=== PATIENT | female | born 1970 | race Caucasian/White ===

== ENCOUNTER 2016-12-12 14:20 | Emergency (ER) | payer SELFPAY ==
[~2016-12-12] VITALS: Ht 160 cm; Wt 74.0 kg
[~2016-12-12 14:20] MED LIST: BENZ100 PO; Z.0.NO CURRENT MEDS; ZITH250T PO
[2016-12-12 14:28] VITALS: BP 122/71; PULSE 96; RESP 17; TEMP 98.2; O2SAT 98
--- NOTE | 2016-12-12 14:47 | PD ---
HPI Chief Complaint: GI Complaint Time Seen by Provider: 14:46 Travel History International Travel<30 days: No Contact w/Intl Traveler<30days: No Traveled to known affect area: No History of Present Illness HPI 46-year-old female came to the emergency room with history of epigastric and periumbilical pain every time she eats she said. This has been going on for past 2 weeks. Currently she is in pain and this time it started since asked night. She says she has been nauseous and this morning threw up once. No history of diarrhea. No blood in the vomitus. Vital signs of been stable. She 's never had a colonoscopy or endoscopy. Currently she is not on any medications on a daily basis. Vital signs were stable. [facility] Past Medical History Narrative Medical List of her past medical, surgical, social and family history was reviewed from the nursing note. ADHD: Yes Depression: Yes Diminished Hearing: No ?: Not LMP: 1 WEEK AGO Tubal Ligation: Yes Social History Alcohol Use: Yes (MIX DRINKS OCCAS.) Tobacco Use: Yes (1 PPD) Substance Use: No Allergies-Medications (Allergen,Severity, Reaction): Coded Allergies: Codeine (Verified Allergy, Severe, HYPER, 12/12/16) Comments List of her allergies reviewed from the nursing note. Reported Meds & Prescriptions Reported Meds & Active Scripts Active Macrobid (Nitrofurantoin Monoh/Nitrofur Macro) 100 Mg Cap 100 Mg PO BID Protonix (Pantoprazole Sodium) 20 Mg Tab 20 Mg PO DAILY Narrative Medication List of her home medications reviewed from the nursing note. Review of Systems Except as stated in HPI: all other systems reviewed are Neg Physical Exam Narrative GENERAL: Awake, alert, anxious, moderate distress SKIN: Focused skin assessment warm/dry. HEAD: Atraumatic. Normocephalic. EYES: Pupils equal and round. No scleral icterus. No injection or drainage. ENT: No nasal bleeding or discharge. Mucous membranes pink and moist. NECK: Trachea midline. No JVD. CARDIOVASCULAR: Regular rate and rhythm. No murmur appreciated. RESPIRATORY: No accessory muscle use. Clear to auscultation. Breath sounds equal bilaterally. GASTROINTESTINAL: Abdomen soft, non-tender, nondistended. Hepatic and splenic margins not palpable. MUSCULOSKELETAL: No obvious deformities. No clubbing. No cyanosis. No edema. NEUROLOGICAL: Awake and alert. No obvious cranial nerve deficits. Motor grossly within normal limits. Normal speech. PSYCHIATRIC: Appropriate mood and affect; insight and judgment normal. Data Data Last Documented VS Vital Signs Date Time Temp Pulse Resp B/P Pulse Ox O2 Delivery O2 Flow Rate FiO2 12/12/16 16:46 78 16 97/68 98 Room Air 12/12/16 14:28 98.2 Orders Complete Blood Count With Diff (12/12/16 14:50) Comprehensive Metabolic Panel (12/12/16 14:50) Lipase (12/12/16 14:50) Urinalysis - C+S If Indicated (12/12/16 14:50) Ct Abd/Pel W Iv Contrast(Rout) (12/12/16 14:50) Iv Access Insert/Monitor (12/12/16 14:50) Ecg Monitoring (12/12/16 14:50) Oximetry (12/12/16 14:50) Ondansetron Inj (Zofran Inj) (12/12/16 15:00) Sodium Chloride 0.9% Flush (Ns Flush) (12/12/16 15:00) Electrocardiogram (12/12/16 14:50) Morphine Inj (Morphine Inj) (12/12/16 15:30) Ketorolac Inj (Toradol Inj) (12/12/16 15:30) Urine Culture (12/12/16 15:07) Nitrofurantoin Monohyd Macrocr (Macrobid (12/12/16 16:00) Iohexol 350 Inj (Omnipaque 350 Inj) (12/12/16 16:05) Labs Laboratory Tests Test 12/12/16 15:07 White Blood Count 9.6 TH/MM3 Red Blood Count 4.26 MIL/MM3 Hemoglobin 13.5 GM/DL Hematocrit 39.3 % Mean Corpuscular Volume 92.3 FL Mean Corpuscular Hemoglobin 31.7 PG Mean Corpuscular Hemoglobin 34.4 % Concent Red Cell Distribution Width 12.2 % Platelet Count 318 TH/MM3 Mean Platelet Volume 8.7 FL Neutrophils (%) (Auto) 48.7 % Lymphocytes (%) (Auto) 28.5 % Monocytes (%) (Auto) 5.3 % Eosinophils (%) (Auto) 16.6 % Basophils (%) (Auto) 0.9 % Neutrophils # (Auto) 4.6 TH/MM3 Lymphocytes # (Auto) 2.8 TH/MM3 Monocytes # (Auto) 0.5 TH/MM3 Eosinophils # (Auto) 1.6 TH/MM3 Basophils # (Auto) 0.1 TH/MM3 CBC Comment DIFF FINAL Differential Comment Urine Collection Type CLEAN CATCH Urine Color YELLOW Urine Turbidity CLEAR Urine pH 6.5 Urine Specific [place] 1.025 Urine Protein TRACE mg/dL Urine Glucose (UA) NEG mg/dL Urine Ketones NEG mg/dL Urine Occult Blood NEG Urine Nitrite NEG Urine Bilirubin NEG Urine Leukocyte Esterase NEG Urine RBC 0-3 /hpf Urine WBC 6-8 /hpf Urine Squamous Epithelial > 8 /hpf Cells Urine Bacteria MOD /hpf Urine Mucus FEW /lpf Microscopic Urinalysis Comment CULTURE INDICATED Urine Collection Time 15:07 Sodium Level 143 MEQ/L Potassium Level 3.9 MEQ/L Chloride Level 109 MEQ/L Carbon Dioxide Level 25.1 MEQ/L Anion Gap 9 MEQ/L Blood Urea Nitrogen 10 MG/DL Creatinine 0.65 MG/DL Estimat Glomerular Filtration 99 ML/MIN Rate Random Glucose 100 MG/DL Calcium Level 8.4 MG/DL Total Bilirubin 0.3 MG/DL Aspartate Amino Transf 9 U/L (AST/SGOT) Alanine Aminotransferase 15 U/L (ALT/SGPT) Alkaline Phosphatase 66 U/L Total Protein 7.0 GM/DL Albumin 3.7 GM/DL Lipase 93 U/L [facility] Medical Decision Making Medical Screen Exam Complete: Yes Emergency Medical Condition: Yes Medical Record Reviewed: Yes Interpretation(s) Twelve-lead EKG was reviewed by me. Normal sinus rhythm, normal axis, nonspecific ST-T wave changes. Heart rate of 81 bpm. Differential Diagnosis Acute gastritis, chronic abdominal pain, acute pancreatitis, acute cholecystitis , acute appendicitis Narrative Course 4:30 PM blood test results of back and within normal limit. CT scan was done which has been read as normal as well. I'll discharge the patient home. Her UA was abnormal and I gave her dose of Macrobid. She'll go home with a prescription. Procedures EKG Prior to Arrival: No Diagnosis Primary Impression: Abdominal pain Qualified Code: R10.9 - Abdominal pain, unspecified location Additional Impression: UTI (urinary tract infection) Qualified Code: N39.0 - Urinary tract infection without hematuria, site unspecified Referrals: Primary Care Physician Additional Instructions: Return to the ER if the condition worsens or any other new concerns. Otherwise follow-up with your primary care in couple days. If the pain continues or primary care may have to refer you to a appliance mechanic. Take the medication as per the prescription direction. Med/Other Pt SpecificInfo: Prescription(s) given Scripts Nitrofurantoin Monohydrate Macrocrystals (Macrobid)100 Mg Fsp416 Mg PO BID #14 CAP Ref 0 Prov:Ray Lopez MD 12/12/16 Pantoprazole (Protonix)20 Mg Tab20 Mg PO DAILY #30 TAB Ref 0 Prov:Ray Lopez MD 12/12/16 Disposition: 01 DISCHARGE HOME Condition: Stable Ray Lopez MD Dec 12, 2016 14:46
[2016-12-12 14:56] VITALS: O2SAT 98
[2016-12-12] MEDS ORDERED: SODIUM CHLORIDE 0.9% FLUSH 10 ML FLUSH IV FLUSH PRN (15:00)
[2016-12-12] MEDS ORDERED: MORPHINE SULFATE 4 MG/ML INJ IV PUSH ONE (15:00)
[2016-12-12] MEDS ORDERED: ONDANSETRON HCL 4 MG/2 ML VIAL IVP ONE (15:00)
[2016-12-12 15:17] LABS: BLOOD, URINE NEG (NEG); GLUCOSE,URINE NEG (NEG); KETONE, URINE NEG (NEG); NITRITE,URINE NEG (NEG); PH, URINE 6.5 (5.0-8.5)
[2016-12-12 15:23] LABS: AUTOMATED NEUTROPHIL # 4.6 TH/MM3 (1.8-7.7); BASOPHIL # 0.1 TH/MM3 (0-0.2); BASOPHIL % 0.9 % (0.0-2.0); EOSINOPHIL # 1.6 TH/MM3 (0-0.4); EOSINOPHIL % 16.6 % (0.0-4.0); HEMATOCRIT 39.3 % (35.0-46.0); HEMO FLAGS DIFF FINAL; LYMPH % 28.5 % (9.0-44.0); LYMPHOCYTE # 2.8 TH/MM3 (1.0-4.8); MEAN CELL VOLUME 92.3 FL (80.0-100.0); MEAN CORPUSCULAR HEMOGLOBIN 31.7 PG (27.0-34.0); MEAN CORPUSCULAR HGB CONC 34.4 % (32.0-36.0); MONO % 5.3 % (0.0-8.0); NEUT % 48.7 % (16.0-70.0); PLATELET COUNT 318 TH/MM3 (150-450); RED BLOOD COUNT 4.26 MIL/MM3 (4.00-5.30); RED CELL DISTRIBUTION WIDTH 12.2 % (11.6-17.2); WHITE BLOOD COUNT 9.6 TH/MM3 (4.0-11.0)
[2016-12-12 15:25] LABS: CHLORIDE 109 MEQ/L (98-107); POTASSIUM 3.9 MEQ/L (3.5-5.1); SODIUM (NA) 143 MEQ/L (136-145)
[2016-12-12 15:29] LABS: ANION GAP 9 MEQ/L (5-15); BICARBONATE 25.1 MEQ/L (21.0-32.0)
[2016-12-12 15:30] LABS: BLOOD UREA NITROGEN 10 MG/DL (7-18)
[2016-12-12] MEDS ORDERED: MORPHINE SULFATE 8 MG/ML INJ IV PUSH ONE (15:30)
[2016-12-12] MEDS ORDERED: KETOROLAC TROMETHAMINE 30 MG/ML (IVP) VIAL IV PUSH ONE (15:30)
[2016-12-12 15:32] LABS: ALT (GPT) 15 U/L (10-53); AST (GOT) 9 U/L (15-37)
[2016-12-12 15:33] LABS: GLOMERULAR FILTRATION RATE 99 ML/MIN (>89); METHOD OF COLLECTION CLEAN CATCH
[2016-12-12 15:34] LABS: MUCUS URINE FEW /lpf (OCC); TOTAL BILIRUBIN ADULT 0.3 MG/DL (0.2-1.0); URINE COLOR YELLOW (YELLW/STRAW)
[2016-12-12 15:35] LABS: ALKALINE PHOSPHATASE 66 U/L (45-117); BACTERIA, URINE MOD /hpf; COMMENT (UR) CULTURE INDICATED; CULTURE IF INDICATED CULTURE INDICATED; RBC, URINE 0-3 /hpf (0-3); SQUAMOUS EPITHELIAL CELL URINE > 8 /hpf (0-5)
[2016-12-12] MEDS ORDERED: NITROFURANTOIN MONOHYD MACROCR 100 MG CAP PO ONE (16:00)
[2016-12-12] MEDS ORDERED: IOHEXOL 350 MG/ML 10 ML VIAL (for RAD DIAG) IV ONE (16:05)
--- NOTE | 2016-12-12 16:22 | RADRPT ---
EXAM DATE/TIME: 12/12/2016 15:56 [place] COMPARISON: No previous studies available for comparison. INDICATIONS : Stomach cramps and vomiting for 2 weeks. IV CONTRAST: 96 cc Omnipaque 350 (iohexol) IV ORAL CONTRAST: No oral contrast ingested. RADIATION DOSE: 12.21 CTDIvol (mGy) MEDICAL HISTORY : None SURGICAL HISTORY : Tubal ligation. ENCOUNTER: Initial ACUITY: 2 weeks PAIN SCALE: 7/10 LOCATION: Abdomen TECHNIQUE: Volumetric scanning of the abdomen and pelvis was performed. Using automated exposure control and ad justment of the mA and/or kV according to patient size, radiation dose was kept as low as reasonably achievable to obtain optimal diagnostic quality images. DICOM format image data is available electro nically for review and comparison. FINDINGS: LOWER LUNGS: The visualized lower lungs are clear. LIVER: Homogeneous density without lesion. There is no dilation of the biliary tree. No calcified gallston es. SPLEEN: Normal size without lesion. PANCREAS: Within normal limits. KIDNEYS: Normal in size and shape. There is no mass, stone or hydronephrosis. ADRENAL GLANDS: Within normal limits. VASCULAR: There is no aortic aneurysm. BOWEL/MESENTERY: The stomach, small bowel, and colon demonstrate no acute abnormality. There is no free intraperitone al air or fluid. ABDOMINAL WALL: Within normal limits. RETROPERITONEUM: There is no lymphadenopathy. BLADDER: No wall thickening or mass. REPRODUCTIVE: Within normal limits. INGUINAL: There is no lymphadenopathy or hernia. MUSCULOSKELETAL: Within normal limits for patient age. CONCLUSION: No acute CT findings in the abdomen or pelvis. Corbin Crawford MD on December 12, 2016 at 16:16 Board Certified Radiologist. This report was verified electronically.
[2016-12-12] MEDS ORDERED: PANT20 PO (16:31)
[2016-12-12] MEDS ORDERED: MACR100C2 PO (16:44)
[2016-12-12 16:46] VITALS: BP 97/68; PULSE 78; RESP 16; O2SAT 98
--- NOTE | 2016-12-13 05:08 | EKG ---
Date Performed: 12/12/2016 Time Performed: 14:57:32 PTAGE: 46 years EKG: Sinus rhythm NONSPECIFIC T-WAVE ABNORMALITY BORDERLINE ECG NO PREVIOUS TRACING DOCTOR: Lawrence Summers Interpretating Date/Time 12/13/2016 05:07:27
== END 2016-12-12 16:48 | disposition home or self-care (01) ==
LOC: PHED 14:20
DX: N39.0 Urinary tract infection, site not specified (principal)
CPT/HCPCS: 74177; 80053; 81001; 83690; 85025; 87086; 93005; 96374; 96375; 99285; J1885; J2405; Q9967